=== PATIENT | male | born 1950 | race Caucasian/White ===

== ENCOUNTER 2021-10-24 07:57 | Emergency (ER) | payer BC ==
[~2021-10-24] VITALS: Ht 172.7 cm; Wt 78.2 kg
[2021-10-24 08:38] LABS: BASOPHILS % (AUTO) 0.2 % (0-1); EOSINOPHILS # (AUTO) 0.1 X10'3 (0-0.9); EOSINOPHILS % (AUTO) 1.3 % (0-6); HEMATOCRIT 46.2 % (42.0-52.0); HEMOGLOBIN 15.7 g/dl (14.0-17.9); LYMPHOCYTES # (AUTO) 1.7 X10'3 (1.1-4.8); LYMPHOCYTES % (AUTO) 16.7 % (21-51); MEAN CORPUSCULAR HEMOGLOBIN 31.7 PG (27.0-31.0); MEAN CORPUSCULAR VOLUME 93.3 FL (78-98); MONOCYTES # (AUTO) 0.7 X10'3 (0-0.9); MONOCYTES % (AUTO) 6.9 % (2-12); NEUTROPHILS # (AUTO) 7.6 X10'3 (1.8-7.7); NEUTROPHILS % (AUTO) 74.9 % (42-75); PLATELET COUNT 219 X10'3 (140-440); RED BLOOD COUNT 4.95 X10'6 (4.70-6.10); RED CELL DISTRIBUTION WIDTH 12.2 % (11.5-14.5); WHITE BLOOD COUNT 10.1 X10'3 (4.5-11.0)
[2021-10-24 08:52] LABS: ALANINE AMINOTRANSFERASE 26 U/L (12-78); ALBUMIN 3.6 G/DL (3.4-5.0); ALBUMIN/GLOBULIN RATIO 1.1 (1.1-1.5); ALKALINE PHOSPHATASE 68 IU/L (46-116); ASPARTATE AMINO TRANSFERASE 16 U/L (10-37); BILIRUBIN,TOTAL 0.6 MG/DL (0.1-1.0); BLOOD UREA NITROGEN 21 MG/DL (7-18); BUN/CREATININE RATIO 22.3 (5.4-32.0); CALCIUM 8.7 MG/DL (8.5-10.1); CREATININE 0.94 MG/DL (0.60-1.10); GLUCOSE 129 MG/DL (70-104); LIPASE 176 U/L (73-393); TOTAL CARBON DIOXIDE 28.5 MMOL/L (24-32); TOTAL PROTEIN 6.9 G/DL (6.4-8.2); eGFR 79 ML/MIN
[2021-10-24 09:10] LABS: ANION GAP 7 (8-16); CHLORIDE 105 MMOL/L (99-107); POTASSIUM 4.2 MMOL/L (3.5-5.1); SODIUM 140 MMOL/L (135-145)
[2021-10-24] MEDS ORDERED: morphine 4 MG/ML inj SYRINge IV ONE ×2 (09:15→10:55)
[2021-10-24] MEDS ORDERED: ringers solution, lacted 1,000 ML IV ONE (09:15)
[2021-10-24] MEDS ORDERED: ondansetron/PF 4mg/2ml inj IV ONE (09:20)
--- NOTE | 2021-10-24 10:00 | NUR ---
PT TO CT
--- NOTE | 2021-10-24 10:10 | NUR ---
returned from ct
--- NOTE | 2021-10-24 10:22 | NUR ---
lab at bedside for rpt troponin
[2021-10-24 11:03] LABS: CLARITY,URINE CLEAR (Clear); COLOR,URINE YELLOW (Yellow); GLUCOSE, URINE NEGATIVE (Neg); KETONES,URINE NEGATIVE (Neg); LEUKOCYTE ESTERASE ,URINE NEGATIVE (Neg); NITRITES, URINE NEGATIVE (Neg); OCCULT BLOOD,URINE NEGATIVE (Neg); PROTEIN,URINE NEGATIVE (Neg); UROBILINOGEN,URINE 0.2 E.U/dL (0.2-1.0)
[2021-10-24 11:07] LABS: UA COLLECTION TYPE CLN CATCH MIDSTREAM
[2021-10-24 12:18] VITALS: BP 134/94
== END 2021-10-24 12:15 | disposition home or self-care (01) ==
LOC: ER 07:57
DX: K57.92 Diverticulitis of intestine, part unspecified, without perforation or abscess without bleeding (principal); R10.84 Generalized abdominal pain; R19.7 Diarrhea, unspecified; R07.89 Other chest pain
CPT/HCPCS: 36415; 71045; 74176; 80053; 81003; 83690; 84484; 85025; 93005; 96361; 96374; 96375; 96376; 99285; J2270; J2405; J7120